=== PATIENT | female | born 1980 | race Two or more races ===

== ENCOUNTER 2020-06-27 10:20 | Outpatient (CLI) | payer OTHER | END 2020-06-27 10:34 | disposition home or self-care (01) | LOC: RX STUDY 10:20 | PROVIDERS: ATTEND Specialist | DX: N70.11 Chronic salpingitis (principal) ==

== ENCOUNTER 2022-12-04 23:25 | Emergency (ER) | payer OTHER ==
[~2022-12-04] VITALS: Ht 157.5 cm; Wt 63.5 kg
== END 2022-12-05 03:48 | disposition home or self-care (01) ==
LOC: ER 23:25
DX: N20.1 Calculus of ureter (principal); Z88.2 Allergy status to sulfonamides; N20.0 Calculus of kidney

== ENCOUNTER → 2024-04-29 | Emergency (ER) | payer OTHER ==
[~2024-04-29] VITALS: Ht 157.5 cm; Wt 68.0 kg
[~2024-04-29] MED LIST: DIATRIZOATE MEGLUMINE, SODIUM 30 ML BOTTLE ONE; MEPERIDINE HCL 25 MG/ML AMPUL IV ONE; PROMETHAZINE HCL 25 MG/ML AMPUL IM ONE; PROMETHAZINE HCL 25 MG/ML AMPUL ONE
[2024-04-30 00:43] LABS: PH,URINE 8.5 (5.0-8.0); URINE APPEARANCE Cloudy; URINE BILIRRUBIN Negative (NEGATIVE); URINE BLOOD Moderate; URINE COLOR Yellow; URINE GLUCOSE Negative (NEGATIVE); URINE KETONE Negative (NEGATIVE); URINE LEUKOCYTE Trace; URINE NITRATE Negative; URINE PROTEIN Trace (NEGATIVE); URINE UROBILINOGEN 0.2 E.U./dl
[2024-04-30 00:47] LABS: URINE EPITHELIAL CELLS 160.8 uL (0.0-38.8); URINE RBC 67.3 uL (0.0-20.8); URINE WBC 6.1 uL (0.0-23.2)
[2024-04-30 00:52] LABS: HEMATOCRIT 39.8 % (36.0-45.00); MEAN CELL VOLUME 86.9 fL (80.00-100.00); MEAN CORPUSCULAR HEMOGLOBIN 28.4 pg (27.00-32.0); MEAN CORPUSCULAR HGB CONC 32.7 g/dl (32.0-36.0); PLATELET COUNT 450 K/uL (150-450); RED BLOOD COUNT 4.58 M/uL (4.00-6.00); RED CELL DISTRIBUTION WIDTH 16.7 % (11.5-14.5)
[2024-04-30 00:58] LABS: URINE CAST 0.14 uL (0.0-1.40)
[2024-04-30 01:06] LABS: ALBUMIN 3.5 gm/dL (3.4-5.0); BILIRUBIN TOTAL 0.42 mg/dL (0.3-1.2); CALCIUM 9.3 mg/dL (8.5-10.1); CREATININE SERUM 1.04 mg/dL (0.55-1.02); GFR 57.3; GLOBULINA 4.5 G/DL (2.4-3.5); POTASSIUM 4.4 mEq/L (3.5-5.1)
== END | disposition left against medical advice (07) ==
LOC: ER 21:16
PROVIDERS: Emergency Medicine
DX: K62.5 Hemorrhage of anus and rectum (principal); Z88.1 Allergy status to other antibiotic agents; Z88.8 Allergy status to other drugs, medicaments and biological substances
CPT/HCPCS: 36415; 74177; Q9965